=== PATIENT | female | born 1950 | race Caucasian/White ===

== ENCOUNTER 2024-07-25 19:08 | Observation (INO) | payer MEDICARE ==
--- NOTE | 2024-07-25 19:27 | ERPHSYRPT ---
- History of Present Illness Time Seen by Provider: 07/25/24 19:26 Source: patient Physician History: 73-year-old female presents to emergency department via EMS for evaluation of confusion. Patient lives at home with her family patient family reports that patient appeared somewhat confused although patient is ANO x 3 at this time. Patient denies pain. EMS reports that patient had what appeared to be about of orthostatic hypotension when she transition from sit to stand. No syncope. Patient states she feels weak. No nausea no vomiting no diarrhea no rash. Patient is otherwise well. She voices no other complaints or concerns at this time. Portions of this note were created with voice recognition technology. There may be grammatical, spelling, punctuation or sound alike errors Timing/Duration: today Severity: moderate Modifying Factors: Improves With: nothing Associated Symptoms: denies symptoms Allergies/Adverse Reactions: No Known Drug Allergies Allergy (Unverified 07/25/24 23:59) - Review of Systems Constitutional: No Symptoms, No Fever, No Chills Eyes: No Symptoms Ears, Nose, & Throat: No Symptoms Respiratory: No Symptoms, No Cough, No Dyspnea Cardiac: No Symptoms, No Chest Pain, No Edema, No Syncope Abdominal/Gastrointestinal: No Symptoms, No Abdominal Pain, No Nausea, No Vomiting, No Diarrhea Genitourinary Symptoms: No Symptoms, No Dysuria Musculoskeletal: No Symptoms, No Back Pain, No Neck Pain Skin: No Symptoms, No Rash Neurological: No Symptoms, No Dizziness, No Focal Weakness, No Sensory Changes Psychological: No Symptoms Endocrine: No Symptoms Hematologic/Lymphatic: No Symptoms Immunological/Allergic: No Symptoms All Other Systems: Reviewed and Negative - Nursing Vital Signs Nursing Vital Signs: Initial Vital Signs Temperature 98.4 F 07/25/24 19:17 Pulse Rate 56 L 07/25/24 19:17 Respiratory Rate 18 07/25/24 19:17 Blood Pressure 116/60 07/25/24 19:17 O2 Sat by Pulse Oximetry 98 07/25/24 19:17 Pain Scale Pain Intensity 0 - Physical Exam General Appearance: no apparent distress, alert Eye Exam: PERRL/EOMI, eyes nml inspection Ears, Nose, Throat Exam: normal ENT inspection, TMs normal, pharynx normal, moist mucous membranes Neck Exam: normal inspection, non-tender, supple, full range of motion Respiratory Exam: normal breath sounds, lungs clear, airway intact, No respiratory distress Cardiovascular Exam: regular rate/rhythm, normal heart sounds, normal peripheral pulses Gastrointestinal/Abdomen Exam: soft, normal bowel sounds, No tenderness, No mass Back Exam: normal inspection, normal range of motion, No CVA tenderness, No vertebral tenderness Extremity Exam: normal inspection, normal range of motion, pelvis stable Neurologic Exam: alert, oriented x 3, cooperative, normal mood/affect, nml cerebellar function, nml station & gait, sensation nml, No motor deficits Skin Exam: normal color, warm, dry, No rash Lymphatic Exam: No adenopathy SpO2 Interpretation: normal O2 Delivery: Room Air - Course Nursing assessment & vital signs reviewed: Yes - CT Exams Head CT Interpretation: Tele-radiologist Report (Normal CT head) Ordered Tests: Active Orders 24 hr Category Date Time Status Chemical Supervisor STAT Care 07/25/24 21:16 Active EKG-ER Only STAT Care 07/25/24 21:15 Active IV Insertion STAT Care 07/25/24 21:15 Active Pulse Oximetry (ED) STAT Care 07/25/24 21:15 Active CHEST 1 VIEW (PORTABLE) Stat Exams 07/25/24 22:58 Taken CHEST WITH CONTRAST [CT] Stat Exams 07/26/24 00:09 Completed HEAD WITHOUT CONTRAST [CT] Stat Exams 07/25/24 19:11 Taken CBC W DIFF Stat Lab 07/25/24 19:30 Completed CMP Stat Lab 07/25/24 19:30 Completed CULTURE,URINE Stat Lab 07/26/24 00:15 Received D-DIMER QUANTITATIVE Stat Lab 07/25/24 19:30 Completed ETHYL ALCOHOL Stat Lab 07/25/24 19:30 Completed MAG [MAGNESIUM] Stat Lab 07/25/24 19:30 Completed NT PRO BNPII Stat Lab 07/25/24 19:30 Completed TROPONIN Q4H Lab 07/25/24 19:30 Completed TROPONIN Q4H Lab 07/26/24 00:47 Completed TROPONIN Q4H Lab 07/26/24 05:30 Ordered UA W/RFX UR CULTURE Stat Lab 07/26/24 00:15 Completed Respiratory Therapy Assessment DAILY RT 07/26/24 01:37 Active Transfer Order Routine Transfer 07/26/24 Ordered Medication Summary Generic Name Dose Route Start Last Admin Trade Name Freq PRN Reason Stop Dose Admin Sodium Chloride 1,000 mls @ 100 mls/hr 07/25/24 21:15 07/25/24 22:17 Sodium Chloride 0.9% 1000 Ml IV 08/24/24 21:14 100 mls/hr .Q10H DALE Administration Azithromycin 500 mg in 250 mls @ 250 mls/hr 07/26/24 02:13 07/26/24 02:51 Zithromax 500 Mg/ 250 Ml Nacl Premix IV 07/26/24 03:12 250 mls/hr STAT STA 250 mls/hr Administration Discontinued Medications Generic Name Dose Route Start Last Admin Trade Name Basilq PRN Reason Stop Dose Admin Albuterol Sulfate 2.5 mg 07/26/24 01:31 07/26/24 01:32 Albuterol Sulfate 2.5 Mg/3 Ml Neb IH 07/26/24 01:32 2.5 mg STAT ONE Administration Albuterol Sulfate Confirm 07/26/24 01:31 Albuterol Sulfate 2.5 Mg/3 Ml Neb Administered 07/26/24 01:32 Dose 2.5 mg IH .STK-MED ONE Aspirin 324 mg 07/25/24 23:57 07/26/24 01:05 Aspirin 81 Mg Tab.Chew PO 07/25/24 23:58 324 mg STAT ONE Administration Aspirin Confirm 07/26/24 00:56 Aspirin 81 Mg Tab.Chew Administered 07/26/24 00:57 Dose 81 mg .ROUTE .STK-MED ONE Methylprednisolone Sodium 0 mg 07/25/24 22:03 07/25/24 22:19 Succinate 125 mg/ Sterile IV 07/25/24 22:04 125 mg Water 2 ml STAT ONE Administration Famotidine 20 mg 07/25/24 22:03 07/25/24 22:18 Famotidine 20 Mg/1 Vial IV 07/25/24 22:04 20 mg STAT ONE Administration Famotidine Confirm 07/25/24 22:08 Famotidine 20 Mg/1 Vial Administered 07/25/24 22:09 Dose 20 mg IV .STK-MED ONE Ceftriaxone Sodium 1 gm in 100 mls @ 200 mls/hr 07/26/24 02:11 Rocephin 1 Gm / 100 Ml Nacl IV 07/26/24 02:40 STAT ONE Ceftriaxone Sodium 2 gm in 100 mls @ 200 mls/hr 07/26/24 02:13 07/26/24 02:37 Rocephin 2 Gm/100 Ml Nacl IV 07/26/24 02:42 200 mls/hr STAT ONE 200 mls/hr Administration Ceftriaxone Sodium Confirm 07/26/24 02:34 Rocephin 2 Gm/100 Ml Nacl Administered 07/26/24 02:35 Dose 2 gm in 100 mls @ ud IV .STK-MED ONE Ceftriaxone Sodium Confirm 07/26/24 02:36 Rocephin 2 Gm/100 Ml Nacl Administered 07/26/24 02:37 Dose 2 gm in 100 mls @ ud IV .STK-MED ONE Azithromycin Confirm 07/26/24 02:47 Zithromax 500 Mg/ 250 Ml Nacl Premix Administered 07/26/24 02:48 Dose 500 mg in 250 mls @ ud IV .STK-MED ONE Methylprednisolone Sodium Succinate Confirm 07/25/24 22:08 Methylprednis Sod Succ 125 Mg/2 Ml Vial Administered 07/25/24 22:09 Dose 125 mg .ROUTE .STK-MED ONE Sterile Water Confirm 07/25/24 22:08 Water For Injection,Sterile 10 Ml Vial Administered 07/25/24 22:09 Dose 10 ml IJ .STK-MED ONE Lab/Rad Data: Laboratory Result Diagrams 07/25/24 19:30 07/25/24 19:30 Laboratory Results 07/26/24 07/26/24 07/25/24 Range/Units 00:47 00:15 23:58 WBC (3.98-10.04) x10^3/uL RBC (3.93-5.22) x10^6/uL Hgb (11.2-15.7) g/dL Hct (34.1-44.9) % MCV (79.4-94.8) fL MCH (25.6-32.2) pg MCHC (32.2-35.5) g/dL RDW (11.7-14.4) % Plt Count (182-369) x10^3/uL MPV (9.4-12.3) fL Gran % (34.0-71.1) % Immature Gran % (Auto) (0.001-0.429) % Nucleat RBC Rel Count (0.00-0.2) % Eos # (Auto) (0.04-0.36) x10^3/uL Immature Gran # (Auto) (0.001-0.031) x10^3u/L Absolute Lymphs (auto) (1.18-3.74) x10^3/uL Absolute Monos (auto) (0.24-0.86) x10^3/uL Absolute Nucleated RBC (0.00-0.012) x10^3u/L Lymphocytes % (19.3-51.7) % Monocytes % (4.7-12.5) % Eosinophils % (0.7-5.8) % Basophils % (0.1-1.2) % Absolute Granulocytes (1.56-6.13) x10^3/uL Basophils # (0.01-0.08) x10^3/uL D-Dimer (0.0-0.50) mg/L Sodium (135-145) mmol/L Potassium (3.5-5.1) mmol/L Chloride (98-107) mmol/L Carbon Dioxide (22-30) mmol/L Anion Gap (5-15) MEQ/L BUN (7-17) mg/dL Creatinine (0.52-1.04) mg/dL Estimated GFR ML/MIN Glucose (74-106) mg/dL Calcium (8.4-10.2) mg/dL Magnesium (1.6-2.3) mg/dL Total Bilirubin (0.2-1.3) mg/dL AST (14-36) U/L ALT (0-35) U/L Alkaline Phosphatase (38-126) U/L Ammonia (9-30) umol/L Troponin I < 0.012 (0.000-0.033) ng/mL NT-Pro-B Natriuret Pep (<300) pg/mL Serum Total Protein (6.3-8.2) g/dL Albumin (3.5-5.0) g/dL Urine Color Yellow (Yellow) Urine Appearance Clear (Clear) Urine pH 6.5 (4.6-8.0) Ur Specific [place] 1.015 (1.005-1.030) Urine Protein Negative (Negative) Urine Glucose (UA) Negative (Negative) mg/dL Urine Ketones Negative (Negative) Urine Blood Negative (Negative) Urine Nitrite Negative (Negative) Urine Bilirubin Negative (Negative) Urine Urobilinogen 0.2 (0.2) mg/dL Ur Leukocyte Esterase Small A (Negative) U Hyaline Cast (Auto) NONE SEEN (0-2) /LPF Urine Microscopic RBC 0-2 (0-5) /HPF Urine Microscopic WBC 11-20 A (0-5) /HPF Ur Epithelial Cells None Seen (None Seen) /HPF Urine Bacteria None Seen (None Seen) /HPF Urine Culture Reflexed YES (NO) Ethyl Alcohol (0-10) mg/dL Influenza Type A Ag NEGATIVE (NEGATIVE) Influenza Type B Ag NEGATIVE (NEGATIVE) RSV (PCR) NEGATIVE (NEGATIVE) SARS-CoV-2 (PCR) NEGATIVE (NEGATIVE) 07/25/24 07/25/24 07/25/24 Range/Units 19:30 19:30 19:30 WBC (3.98-10.04) x10^3/uL RBC (3.93-5.22) x10^6/uL Hgb (11.2-15.7) g/dL Hct (34.1-44.9) % MCV (79.4-94.8) fL MCH (25.6-32.2) pg MCHC (32.2-35.5) g/dL RDW (11.7-14.4) % Plt Count (182-369) x10^3/uL MPV (9.4-12.3) fL Gran % (34.0-71.1) % Immature Gran % (Auto) (0.001-0.429) % Nucleat RBC Rel Count (0.00-0.2) % Eos # (Auto) (0.04-0.36) x10^3/uL Immature Gran # (Auto) (0.001-0.031) x10^3u/L Absolute Lymphs (auto) (1.18-3.74) x10^3/uL Absolute Monos (auto) (0.24-0.86) x10^3/uL Absolute Nucleated RBC (0.00-0.012) x10^3u/L Lymphocytes % (19.3-51.7) % Monocytes % (4.7-12.5) % Eosinophils % (0.7-5.8) % Basophils % (0.1-1.2) % Absolute Granulocytes (1.56-6.13) x10^3/uL Basophils # (0.01-0.08) x10^3/uL D-Dimer 1.16 H* (0.0-0.50) mg/L Sodium (135-145) mmol/L Potassium (3.5-5.1) mmol/L Chloride (98-107) mmol/L Carbon Dioxide (22-30) mmol/L Anion Gap (5-15) MEQ/L BUN (7-17) mg/dL Creatinine (0.52-1.04) mg/dL Estimated GFR ML/MIN Glucose (74-106) mg/dL Calcium (8.4-10.2) mg/dL Magnesium (1.6-2.3) mg/dL Total Bilirubin (0.2-1.3) mg/dL AST (14-36) U/L ALT (0-35) U/L Alkaline Phosphatase (38-126) U/L Ammonia (9-30) umol/L Troponin I < 0.012 (0.000-0.033) ng/mL NT-Pro-B Natriuret Pep 723 (<300) pg/mL Serum Total Protein (6.3-8.2) g/dL Albumin (3.5-5.0) g/dL Urine Color (Yellow) Urine Appearance (Clear) Urine pH (4.6-8.0) Ur Specific [place] (1.005-1.030) Urine Protein (Negative) Urine Glucose (UA) (Negative) mg/dL Urine Ketones (Negative) Urine Blood (Negative) Urine Nitrite (Negative) Urine Bilirubin (Negative) Urine Urobilinogen (0.2) mg/dL Ur Leukocyte Esterase (Negative) U Hyaline Cast (Auto) (0-2) /LPF Urine Microscopic RBC (0-5) /HPF Urine Microscopic WBC (0-5) /HPF Ur Epithelial Cells (None Seen) /HPF Urine Bacteria (None Seen) /HPF Urine Culture Reflexed (NO) Ethyl Alcohol (0-10) mg/dL Influenza Type A Ag (NEGATIVE) Influenza Type B Ag (NEGATIVE) RSV (PCR) (NEGATIVE) SARS-CoV-2 (PCR) (NEGATIVE) 07/25/24 07/25/24 07/25/24 Range/Units 19:30 19:30 19:30 WBC 6.9 (3.98-10.04) x10^3/uL RBC 3.93 (3.93-5.22) x10^6/uL Hgb 12.5 (11.2-15.7) g/dL Hct 38.6 (34.1-44.9) % MCV 98.2 H (79.4-94.8) fL MCH 31.8 (25.6-32.2) pg MCHC 32.4 (32.2-35.5) g/dL RDW 13.2 (11.7-14.4) % Plt Count 206 (182-369) x10^3/uL MPV 11.9 (9.4-12.3) fL Gran % 56.1 (34.0-71.1) % Immature Gran % (Auto) 0.3 (0.001-0.429) % Nucleat RBC Rel Count 0.0 (0.00-0.2) % Eos # (Auto) 0.21 (0.04-0.36) x10^3/uL Immature Gran # (Auto) 0.02 (0.001-0.031) x10^3u/L Absolute Lymphs (auto) 2.05 (1.18-3.74) x10^3/uL Absolute Monos (auto) 0.66 (0.24-0.86) x10^3/uL Absolute Nucleated RBC 0.00 (0.00-0.012) x10^3u/L Lymphocytes % 29.9 (19.3-51.7) % Monocytes % 9.6 (4.7-12.5) % Eosinophils % 3.1 (0.7-5.8) % Basophils % 1.0 (0.1-1.2) % Absolute Granulocytes 3.85 (1.56-6.13) x10^3/uL Basophils # 0.07 (0.01-0.08) x10^3/uL D-Dimer (0.0-0.50) mg/L Sodium 143 (135-145) mmol/L Potassium 3.9 (3.5-5.1) mmol/L Chloride 105 (98-107) mmol/L Carbon Dioxide 31 H (22-30) mmol/L Anion Gap 11.2 (5-15) MEQ/L BUN 12 (7-17) mg/dL Creatinine 0.76 (0.52-1.04) mg/dL Estimated GFR 82.7 ML/MIN Glucose 79 (74-106) mg/dL Calcium 9.3 (8.4-10.2) mg/dL Magnesium 1.8 (1.6-2.3) mg/dL Total Bilirubin 0.60 (0.2-1.3) mg/dL AST 25 (14-36) U/L ALT 18 (0-35) U/L Alkaline Phosphatase 83 (38-126) U/L Ammonia (9-30) umol/L Troponin I (0.000-0.033) ng/mL NT-Pro-B Natriuret Pep (<300) pg/mL Serum Total Protein 7.0 (6.3-8.2) g/dL Albumin 3.9 (3.5-5.0) g/dL Urine Color (Yellow) Urine Appearance (Clear) Urine pH (4.6-8.0) Ur Specific [place] (1.005-1.030) Urine Protein (Negative) Urine Glucose (UA) (Negative) mg/dL Urine Ketones (Negative) Urine Blood (Negative) Urine Nitrite (Negative) Urine Bilirubin (Negative) Urine Urobilinogen (0.2) mg/dL Ur Leukocyte Esterase (Negative) U Hyaline Cast (Auto) (0-2) /LPF Urine Microscopic RBC (0-5) /HPF Urine Microscopic WBC (0-5) /HPF Ur Epithelial Cells (None Seen) /HPF Urine Bacteria (None Seen) /HPF Urine Culture Reflexed (NO) Ethyl Alcohol < 10 (0-10) mg/dL Influenza Type A Ag (NEGATIVE) Influenza Type B Ag (NEGATIVE) RSV (PCR) (NEGATIVE) SARS-CoV-2 (PCR) (NEGATIVE) 07/25/24 Range/Units 19:30 WBC (3.98-10.04) x10^3/uL RBC (3.93-5.22) x10^6/uL Hgb (11.2-15.7) g/dL Hct (34.1-44.9) % MCV (79.4-94.8) fL MCH (25.6-32.2) pg MCHC (32.2-35.5) g/dL RDW (11.7-14.4) % Plt Count (182-369) x10^3/uL MPV (9.4-12.3) fL Gran % (34.0-71.1) % Immature Gran % (Auto) (0.001-0.429) % Nucleat RBC Rel Count (0.00-0.2) % Eos # (Auto) (0.04-0.36) x10^3/uL Immature Gran # (Auto) (0.001-0.031) x10^3u/L Absolute Lymphs (auto) (1.18-3.74) x10^3/uL Absolute Monos (auto) (0.24-0.86) x10^3/uL Absolute Nucleated RBC (0.00-0.012) x10^3u/L Lymphocytes % (19.3-51.7) % Monocytes % (4.7-12.5) % Eosinophils % (0.7-5.8) % Basophils % (0.1-1.2) % Absolute Granulocytes (1.56-6.13) x10^3/uL Basophils # (0.01-0.08) x10^3/uL D-Dimer (0.0-0.50) mg/L Sodium (135-145) mmol/L Potassium (3.5-5.1) mmol/L Chloride (98-107) mmol/L Carbon Dioxide (22-30) mmol/L Anion Gap (5-15) MEQ/L BUN (7-17) mg/dL Creatinine (0.52-1.04) mg/dL Estimated GFR ML/MIN Glucose (74-106) mg/dL Calcium (8.4-10.2) mg/dL Magnesium (1.6-2.3) mg/dL Total Bilirubin (0.2-1.3) mg/dL AST (14-36) U/L ALT (0-35) U/L Alkaline Phosphatase (38-126) U/L Ammonia < 9 L (9-30) umol/L Troponin I (0.000-0.033) ng/mL NT-Pro-B Natriuret Pep (<300) pg/mL Serum Total Protein (6.3-8.2) g/dL Albumin (3.5-5.0) g/dL Urine Color (Yellow) Urine Appearance (Clear) Urine pH (4.6-8.0) Ur Specific [place] (1.005-1.030) Urine Protein (Negative) Urine Glucose (UA) (Negative) mg/dL Urine Ketones (Negative) Urine Blood (Negative) Urine Nitrite (Negative) Urine Bilirubin (Negative) Urine Urobilinogen (0.2) mg/dL Ur Leukocyte Esterase (Negative) U Hyaline Cast (Auto) (0-2) /LPF Urine Microscopic RBC (0-5) /HPF Urine Microscopic WBC (0-5) /HPF Ur Epithelial Cells (None Seen) /HPF Urine Bacteria (None Seen) /HPF Urine Culture Reflexed (NO) Ethyl Alcohol (0-10) mg/dL Influenza Type A Ag (NEGATIVE) Influenza Type B Ag (NEGATIVE) RSV (PCR) (NEGATIVE) SARS-CoV-2 (PCR) (NEGATIVE) - Progress Progress: improved Progress Note: We stand patient up to the edge of the bed. Patient's O2 sat dropped to 90%. Patient became short of breath. We had to expand our workup at this point to include hypoxia and shortness of breath in addition to the initial presenting complaint of altered mental status. At rest in the supine position patient's O2 sat was normal. Lungs were clear 07/26/24 00:18 73-year-old female presents to our ED for evaluation of transient altered mental status. Family observed patient to be confused. However upon arrival to our ED patient was appropriate. CT head negative for acute intracranial pathology. Later in the course of patient's ED visit patient was observed to be hypoxic. Workup showed a positive D-dimer. CTA chest negative however COPD observed. Patient treated for COPD exacerbation including Solu-Medrol, breathing treatment, antibiotics blood cultures. While in our ED patient advised that she had been experiencing some itching to both arms for the past several days. Patient received a dose of Pepcid in our ED. laboratory workup essentially nonremarkable otherwise. UA significant for urinary tract infection. Patient reassessed. Patient resting comfortably. No indication for further workup via our ED. Patient will be admitted for further workup of her transient confusion which may be secondary to TIA. Patient will also need workup to treat hypoxia. Plan of care discussed with patient. She agrees to admission at [facility] for further evaluation and treatment. Portions of this note were created with voice recognition technology. There may be grammatical, spelling, punctuation or sound alike errors Complexity of problem addressed is moderate acute complicated. No critical care time. Complex of data reviewed and analyzed is extensive. Test ordered test reviewed results analyzed and correlated clinically with history and physical exam. Management discussed with hospitalist who accepts admission to observation at 2:34 AM. Risk of complication and or risk of morbidity/mortality of patient management is high. Patient requires hospitalization for further evaluation and treatment. Vital stable. Time spent to admit patient approximately 20 minutes. Plan of care established for shared decision making. No social determinants of health present to impede follow-up. Portions of this note were created with voice recognition technology. There may be grammatical, spelling, punctuation or sound alike errors 07/26/24 02:56 Counseled pt/family regarding: lab results, diagnosis, need for follow-up, rad results - Departure Departure Disposition: Observation Clinical Impression: Confusion, Pruritus, Hypoxia, SOB (shortness of breath), UTI (urinary tract infection), COPD exacerbation Condition: Stable Critical Care Time: No Referrals: DOCTOR,NO FAMILY [Primary Care Provider] - Follow up/PCP as directed Instructions: Chronic Obstructive Pulmonary Disease
[2024-07-25 21:19] LABS: Absolute Neutrophil Ct (ANC) 3.85 x10^3/uL (1.56-6.13); Basophil (Absolute #) 0.07 x10^3/uL (0.01-0.08); Eosinophil % 3.1 % (0.7-5.8); Eosinophil (Absolute #) 0.21 x10^3/uL (0.04-0.36); Hematocrit 38.6 % (34.1-44.9); Hemoglobin 12.5 g/dL (11.2-15.7); IMMATURE GRAN # 0.02 x10^3u/L (0.001-0.031); IMMATURE GRAN % 0.3 % (0.001-0.429); Lymphocyte (Absolute #) 2.05 x10^3/uL (1.18-3.74); Lymphocytes % 29.9 % (19.3-51.7); Mean Cell Volume 98.2 fL (79.4-94.8); Mean Corpuscular Hemoglobin 31.8 pg (25.6-32.2); Mean Corpuscular Hgb Concent. 32.4 g/dL (32.2-35.5); Mean Platelet Volume 11.9 fL (9.4-12.3); Monocyte (Absolute #) 0.66 x10^3/uL (0.24-0.86); Monocytes % 9.6 % (4.7-12.5); Neutrophil % 56.1 % (34.0-71.1); Platelet Count 206 x10^3/uL (182-369); Red Blood Count 3.93 x10^6/uL (3.93-5.22); Red Cell Distribution Width 13.2 % (11.7-14.4); White Blood Count 6.9 x10^3/uL (3.98-10.04)
[2024-07-25 21:33] LABS: ALBUMIN 3.9 g/dL (3.5-5.0); ALKALINE PHOSPHATASE 83 U/L (38-126); ANION GAP 11.2 MEQ/L (5-15); BLOOD UREA NITROGEN 12 mg/dL (7-17); CHLORIDE 105 mmol/L (98-107); Calcium 9.3 mg/dL (8.4-10.2); Carbon Dioxide 31 mmol/L (22-30); Creatinine 1 0.76 mg/dL (0.52-1.04); EST GLOMERULAR FILTRATION RATE 82.7 ML/MIN; ETHYL ALCOHOL < 10 mg/dL (0-10); Glucose 79 mg/dL (74-106); Potassium 3.9 mmol/L (3.5-5.1); SGOT/AST 25 U/L (14-36); SGPT/ALT 18 U/L (0-35); SODIUM 143 mmol/L (135-145)
[2024-07-25] MEDS ORDERED: Pepcid 20 MG VIAL IV ONE (22:08)
[2024-07-25] MEDS ORDERED: solu-MEDROL ONE (22:08)
[2024-07-25] MEDS ORDERED: Sterile H2O 10 ml IJ ONE (22:08)
[2024-07-25] MEDS: Sodium Chloride 0.9% 1000 ML 1,000 ML IV SCH (22:17)
[2024-07-25] MEDS: Pepcid 20 MG VIAL IV ONE (22:18)
[2024-07-25] MEDS: solu-MEDROL 125 MG, Sterile H2O 10 ml 2 ML IV ONE (22:19)
[2024-07-26 00:36] LABS: INFLUENZA A NEGATIVE (NEGATIVE); INFLUENZA B NEGATIVE (NEGATIVE); RESPIRATORY SYNCTIAL VIRUS NEGATIVE (NEGATIVE); SARS-CoV-2 Xpert Express NEGATIVE (NEGATIVE)
[2024-07-26 00:43] LABS: Appearance Clear (Clear); Bacteria None Seen /HPF (None Seen); Bilirubin Negative (Negative); Blood Negative (Negative); Epithelial Cells None Seen /HPF (None Seen); Glucose, Urine Negative (Negative); Hyaline Casts NONE SEEN /LPF (0-2); Ketones Negative (Negative); Leukocyte Esterase Small (Negative); Nitrite Negative (Negative); Ph 6.5 (4.6-8.0); Protein,Urine Dip Negative (Negative); RBC 0-2 /HPF (0-5); Specific Gravity 1.015 (1.005-1.030); Urobilinogen 0.2 mg/dL (0.2)
[2024-07-26] MEDS ORDERED: BABY ASPIRIN 81 MG CHEW ONE (00:56)
[2024-07-26] MEDS: BABY ASPIRIN 81 MG CHEW PO ONE (01:05)
[2024-07-26] MEDS ORDERED: PROVENTIL 2.5 MG/3 ML NEB IH ONE (01:31)
[2024-07-26] MEDS: PROVENTIL 2.5 MG/3 ML NEB IH ONE (01:32)
--- NOTE | 2024-07-26 02:01 | XRAY ---
CLINICAL HISTORY: sob, + dimer COMPARISON: None. TECHNIQUE: Contiguous axial images were obtained from the neck base through the upper abdomen following intravenous administration of contrast material. If IV contrast material had not been administered, the likelihood of detecting abnormalities relevant to the patient's condition would have been substantially decreased. In addition, sagittal and coronal reconstructions were performed. CT scan was performed according to ALARA (as low as reasonable achievable). FINDINGS: Diffuse centrilobular emphysema is noted involving bilateral lungs. Focal fibrotic thickening are noted involving posterior segment of right upper lobe. Focal calcification is noted adjacent to the course of segmental branches of right upper lobe. The lungs are clear, with no focal areas of consolidation. No pulmonary nodules are seen. The central airways are patent. There are no pleural effusions. No pneumothorax is seen. No axillary, hilar, or mediastinal adenopathy is identified. The visualized thyroid is unremarkable. The heart, aorta, and pulmonary arteries are of normal size and configuration. No pericardial effusion is identified. Imaged portions of the upper abdomen are unremarkable. No aggressive appearing osseous lesions are identified. IMPRESSION: 1. Diffuse centrilobular emphysema is noted involving bilateral lungs.- possibility of COPD changes. 2. Focal fibrotic thickening are noted involving posterior segment of right upper lobe. 3. Focal calcification is noted adjacent to the course of segmental branches of right upper lobe. 4. No obvious evidence of pulmonary thromboembolism. Electronically Signed by: Yovanny Gilbert MD. (07/26/2024 01:57:01 EST)
[2024-07-26] MEDS ORDERED: ROCEPHIN 2 GM/100 ML NACL 0 GM/0 ML IVPB IV ONE (02:34)
[2024-07-26] MEDS ORDERED: ROCEPHIN 2 GM/100 ML NACL 2 GM/100 ML IVPB IV ONE (02:36)
[2024-07-26] MEDS: ROCEPHIN 2 GM/100 ML NACL 2 GM/100 ML IVPB IV ONE (02:37)
[2024-07-26] MEDS ORDERED: Zithromax 500 MG/ 250 ML NaCl Premix 500 MG/250 ML IVPB IV ONE (02:47)
[2024-07-26] MEDS: Zithromax 500 MG/ 250 ML NaCl Premix 500 MG/250 ML IVPB IV STA (02:51)
[2024-07-26] MEDS: NICODERM CQ 14 MG TOP SCH (05:43)
[2024-07-26 05:46] LABS: Hematocrit 36.9 % (34.1-44.9); Mean Cell Volume 96.3 fL (79.4-94.8); Mean Corpuscular Hemoglobin 31.3 pg (25.6-32.2); Mean Corpuscular Hgb Concent. 32.5 g/dL (32.2-35.5); Mean Platelet Volume 11.4 fL (9.4-12.3); Platelet Count 204 x10^3/uL (182-369); Red Blood Count 3.83 x10^6/uL (3.93-5.22); Red Cell Distribution Width 13.4 % (11.7-14.4); White Blood Count 7.2 x10^3/uL (3.98-10.04)
[2024-07-26 05:59] LABS: Creatinine 1 0.64 mg/dL (0.52-1.04); EST GLOMERULAR FILTRATION RATE 93.3 ML/MIN; Potassium 3.9 mmol/L (3.5-5.1)
--- NOTE | 2024-07-26 06:02 | PCM.HP ---
History of Present Illness - Chief Complaint Chief Complaint: confusion, hypoxia Date: 07/26/24 History of Present Illness: 73-year-old woman with history of COPD and hypothyroidism, who presents from home with confusion. Of note, history is somewhat limited, as patient does not know why she was brought to the hospital. By the time she arrived to the ED, she was at her baseline mentation, and patient is like she is doing well overall. On arrival, she was doing well, but eventually developed mild hypoxia with an SpO2 of 91% on room air, and at that time was complaining of some dyspnea, and was placed on 2 L oxygen. She is currently 96% on 2 L. She says that she has been having some intermittent dyspnea chronically but not having any currently. Denies any cough, fever, congestion, or sore throat. She denies chest pain, abdominal pain, nausea, dysuria, although noted to be having some intermittent diarrhea. She notes that she is on an inhaler at home, but she does not know what it is that she takes. In the ED, patient was given Rocephin, azithromycin, methylprednisolone, albuterol, aspirin, famotidine, inserted on normal saline at 100 mL/h. - Review of Systems All Other Systems: Reviewed and Negative Medications & Allergies Allergies/Adverse Reactions: Allergies Allergy/AdvReac Type Severity Reaction Status Date / Time No Known Drug Allergies Allergy Unverified 07/25/24 23:59 - Past Medical History Past Medical History: Yes Neurological History: No Pertinent History ENT History: No Pertinent History Cardiac History: Coronary Artery Disease Respiratory History: No Pertinent History Endocrine Medical History: Hypothyroidism Musculoskelatal History: No Pertinent History GI Medical History: No Pertinent History History: No Pertinent History Pyscho-Social History: No Pertinent History Reproductive Disorders: No Pertinent History - Past Surgical History Past Surgical History: Yes Neuro Surgical History: No Pertinent History Cardiac History: CABG Respiratory Surgery: No Pertinent History GI Surgical History: No Pertinent History Genitourinary Surgical Hx: No Pertinent History Musculskeletal Surgical Hx: No Pertinent History Female Surgical History: No Pertinent History Other Surgical History: thyroid removed in the 80's, does not remember exact year Significant Family History: no pertinent family hx, other (both parents with cancer; son with epilepsy) - Social History Smoking Status: Current every day smoker (former heavy smoker, now 2-3 cigarettes per day) How long have you smoked: 47 years Exposure to second hand smoke: No Alcohol: None Drug Use: none - Social Determinants of Health Will the patient participate in the screening: Declined to provide - Physical Exam Vital Signs: Vital Signs - 24 hr Temp Pulse Resp BP BP Pulse Ox 07/26/24 04:48 57 L 20 95 07/26/24 03:45 96 07/26/24 03:37 97.4 F 65 18 126/66 94 L 07/26/24 02:30 77 23 103/56 96 07/26/24 02:00 69 23 96/57 96 07/26/24 01:59 69 28 H 96 07/26/24 01:50 63 32 H 95 07/26/24 01:40 57 L 27 H 99 07/26/24 01:37 58 L 22 99 07/26/24 01:30 59 L 29 H 99 07/26/24 01:24 99 07/26/24 01:01 54 L 24 99 07/26/24 00:30 60 26 H 116/63 100 07/26/24 00:12 60 24 147/74 99 07/25/24 23:30 62 20 152/78 98 07/25/24 23:00 60 31 H 155/77 94 L 07/25/24 22:59 69 19 95 07/25/24 22:50 58 L 34 H 94 L 07/25/24 22:49 61 30 H 95 07/25/24 22:40 61 21 95 07/25/24 22:32 62 27 H 94 L 07/25/24 22:01 58 L 27 H 96/50 94 L 07/25/24 21:34 58 L 32 H 112/63 95 07/25/24 21:30 54 L 30 H 86/63 95 07/25/24 21:15 98 07/25/24 21:11 56 L 24 120/66 94 L 07/25/24 21:01 53 L 21 78/50 98 07/25/24 20:30 55 L 30 H 117/59 96 07/25/24 20:00 51 L 21 107/56 96 07/25/24 19:30 50 L 24 117/63 95 07/25/24 19:23 59 L 29 H 116/60 07/25/24 19:17 98.4 F 56 L 18 116/60 98 Physical Exam GEN: Somewhat frail woman, sitting up in bed in no acute distress. HENT: Normocephalic, atraumatic. Moist mucous membranes. EYES: Normal inspection, anicteric sclera, extraocular movements intact. NECK: Supple, full range of motion CV: Regular rate and rhythm, no murmurs, no gallops. No JVD or edema. PULM: Clear to auscultation bilaterally, no work of breathing, speaking in full sentences. On 2 L oxygen by nasal cannula. ABD: Nondistended, nontender. MSK: No joint effusions, full range of motion SKIN: No rashes, normal color. NEURO: Face symmetric, no focal motor or sensory deficits. PSYCH: Alert, oriented x 3, able to answer all questions Results - Labs Lab/Micro Results: Lab Results-Last 24 Hours 07/25/24 07/25/24 07/25/24 Range/Units 19:30 19:30 19:30 WBC 6.9 (3.98-10.04) x10^3/uL RBC 3.93 (3.93-5.22) x10^6/uL Hgb 12.5 (11.2-15.7) g/dL Hct 38.6 (34.1-44.9) % MCV 98.2 H (79.4-94.8) fL MCH 31.8 (25.6-32.2) pg MCHC 32.4 (32.2-35.5) g/dL RDW 13.2 (11.7-14.4) % Plt Count 206 (182-369) x10^3/uL MPV 11.9 (9.4-12.3) fL Gran % 56.1 (34.0-71.1) % Immature Gran % (Auto) 0.3 (0.001-0.429) % Nucleat RBC Rel Count 0.0 (0.00-0.2) % Eos # (Auto) 0.21 (0.04-0.36) x10^3/uL Immature Gran # (Auto) 0.02 (0.001-0.031) x10^3u/L Absolute Lymphs (auto) 2.05 (1.18-3.74) x10^3/uL Absolute Monos (auto) 0.66 (0.24-0.86) x10^3/uL Absolute Nucleated RBC 0.00 (0.00-0.012) x10^3u/L Lymphocytes % 29.9 (19.3-51.7) % Monocytes % 9.6 (4.7-12.5) % Eosinophils % 3.1 (0.7-5.8) % Basophils % 1.0 (0.1-1.2) % Absolute Granulocytes 3.85 (1.56-6.13) x10^3/uL Basophils # 0.07 (0.01-0.08) x10^3/uL D-Dimer (0.0-0.50) mg/L Sodium (135-145) mmol/L Potassium (3.5-5.1) mmol/L Chloride (98-107) mmol/L Carbon Dioxide (22-30) mmol/L Anion Gap (5-15) MEQ/L BUN (7-17) mg/dL Creatinine (0.52-1.04) mg/dL Estimated GFR ML/MIN Glucose (74-106) mg/dL Calcium (8.4-10.2) mg/dL Magnesium 1.8 (1.6-2.3) mg/dL Total Bilirubin (0.2-1.3) mg/dL AST (14-36) U/L ALT (0-35) U/L Alkaline Phosphatase (38-126) U/L Ammonia < 9 L (9-30) umol/L Troponin I (0.000-0.033) ng/mL NT-Pro-B Natriuret Pep (<300) pg/mL Serum Total Protein (6.3-8.2) g/dL Albumin (3.5-5.0) g/dL Urine Color (Yellow) Urine Appearance (Clear) Urine pH (4.6-8.0) Ur Specific [place] (1.005-1.030) Urine Protein (Negative) Urine Glucose (UA) (Negative) mg/dL Urine Ketones (Negative) Urine Blood (Negative) Urine Nitrite (Negative) Urine Bilirubin (Negative) Urine Urobilinogen (0.2) mg/dL Ur Leukocyte Esterase (Negative) U Hyaline Cast (Auto) (0-2) /LPF Urine Microscopic RBC (0-5) /HPF Urine Microscopic WBC (0-5) /HPF Ur Epithelial Cells (None Seen) /HPF Urine Bacteria (None Seen) /HPF Urine Culture Reflexed (NO) Ethyl Alcohol (0-10) mg/dL Influenza Type A Ag (NEGATIVE) Influenza Type B Ag (NEGATIVE) RSV (PCR) (NEGATIVE) SARS-CoV-2 (PCR) (NEGATIVE) 07/25/24 07/25/24 07/25/24 Range/Units 19:30 19:30 19:30 WBC (3.98-10.04) x10^3/uL RBC (3.93-5.22) x10^6/uL Hgb (11.2-15.7) g/dL Hct (34.1-44.9) % MCV (79.4-94.8) fL MCH (25.6-32.2) pg MCHC (32.2-35.5) g/dL RDW (11.7-14.4) % Plt Count (182-369) x10^3/uL MPV (9.4-12.3) fL Gran % (34.0-71.1) % Immature Gran % (Auto) (0.001-0.429) % Nucleat RBC Rel Count (0.00-0.2) % Eos # (Auto) (0.04-0.36) x10^3/uL Immature Gran # (Auto) (0.001-0.031) x10^3u/L Absolute Lymphs (auto) (1.18-3.74) x10^3/uL Absolute Monos (auto) (0.24-0.86) x10^3/uL Absolute Nucleated RBC (0.00-0.012) x10^3u/L Lymphocytes % (19.3-51.7) % Monocytes % (4.7-12.5) % Eosinophils % (0.7-5.8) % Basophils % (0.1-1.2) % Absolute Granulocytes (1.56-6.13) x10^3/uL Basophils # (0.01-0.08) x10^3/uL D-Dimer 1.16 H* (0.0-0.50) mg/L Sodium 143 (135-145) mmol/L Potassium 3.9 (3.5-5.1) mmol/L Chloride 105 (98-107) mmol/L Carbon Dioxide 31 H (22-30) mmol/L Anion Gap 11.2 (5-15) MEQ/L BUN 12 (7-17) mg/dL Creatinine 0.76 (0.52-1.04) mg/dL Estimated GFR 82.7 ML/MIN Glucose 79 (74-106) mg/dL Calcium 9.3 (8.4-10.2) mg/dL Magnesium (1.6-2.3) mg/dL Total Bilirubin 0.60 (0.2-1.3) mg/dL AST 25 (14-36) U/L ALT 18 (0-35) U/L Alkaline Phosphatase 83 (38-126) U/L Ammonia (9-30) umol/L Troponin I < 0.012 (0.000-0.033) ng/mL NT-Pro-B Natriuret Pep (<300) pg/mL Serum Total Protein 7.0 (6.3-8.2) g/dL Albumin 3.9 (3.5-5.0) g/dL Urine Color (Yellow) Urine Appearance (Clear) Urine pH (4.6-8.0) Ur Specific [place] (1.005-1.030) Urine Protein (Negative) Urine Glucose (UA) (Negative) mg/dL Urine Ketones (Negative) Urine Blood (Negative) Urine Nitrite (Negative) Urine Bilirubin (Negative) Urine Urobilinogen (0.2) mg/dL Ur Leukocyte Esterase (Negative) U Hyaline Cast (Auto) (0-2) /LPF Urine Microscopic RBC (0-5) /HPF Urine Microscopic WBC (0-5) /HPF Ur Epithelial Cells (None Seen) /HPF Urine Bacteria (None Seen) /HPF Urine Culture Reflexed (NO) Ethyl Alcohol < 10 (0-10) mg/dL Influenza Type A Ag (NEGATIVE) Influenza Type B Ag (NEGATIVE) RSV (PCR) (NEGATIVE) SARS-CoV-2 (PCR) (NEGATIVE) 07/25/24 07/25/24 07/26/24 Range/Units 19:30 23:58 00:15 WBC (3.98-10.04) x10^3/uL RBC (3.93-5.22) x10^6/uL Hgb (11.2-15.7) g/dL Hct (34.1-44.9) % MCV (79.4-94.8) fL MCH (25.6-32.2) pg MCHC (32.2-35.5) g/dL RDW (11.7-14.4) % Plt Count (182-369) x10^3/uL MPV (9.4-12.3) fL Gran % (34.0-71.1) % Immature Gran % (Auto) (0.001-0.429) % Nucleat RBC Rel Count (0.00-0.2) % Eos # (Auto) (0.04-0.36) x10^3/uL Immature Gran # (Auto) (0.001-0.031) x10^3u/L Absolute Lymphs (auto) (1.18-3.74) x10^3/uL Absolute Monos (auto) (0.24-0.86) x10^3/uL Absolute Nucleated RBC (0.00-0.012) x10^3u/L Lymphocytes % (19.3-51.7) % Monocytes % (4.7-12.5) % Eosinophils % (0.7-5.8) % Basophils % (0.1-1.2) % Absolute Granulocytes (1.56-6.13) x10^3/uL Basophils # (0.01-0.08) x10^3/uL D-Dimer (0.0-0.50) mg/L Sodium (135-145) mmol/L Potassium (3.5-5.1) mmol/L Chloride (98-107) mmol/L Carbon Dioxide (22-30) mmol/L Anion Gap (5-15) MEQ/L BUN (7-17) mg/dL Creatinine (0.52-1.04) mg/dL Estimated GFR ML/MIN Glucose (74-106) mg/dL Calcium (8.4-10.2) mg/dL Magnesium (1.6-2.3) mg/dL Total Bilirubin (0.2-1.3) mg/dL AST (14-36) U/L ALT (0-35) U/L Alkaline Phosphatase (38-126) U/L Ammonia (9-30) umol/L Troponin I (0.000-0.033) ng/mL NT-Pro-B Natriuret Pep 723 (<300) pg/mL Serum Total Protein (6.3-8.2) g/dL Albumin (3.5-5.0) g/dL Urine Color Yellow (Yellow) Urine Appearance Clear (Clear) Urine pH 6.5 (4.6-8.0) Ur Specific [place] 1.015 (1.005-1.030) Urine Protein Negative (Negative) Urine Glucose (UA) Negative (Negative) mg/dL Urine Ketones Negative (Negative) Urine Blood Negative (Negative) Urine Nitrite Negative (Negative) Urine Bilirubin Negative (Negative) Urine Urobilinogen 0.2 (0.2) mg/dL Ur Leukocyte Esterase Small A (Negative) U Hyaline Cast (Auto) NONE SEEN (0-2) /LPF Urine Microscopic RBC 0-2 (0-5) /HPF Urine Microscopic WBC 11-20 A (0-5) /HPF Ur Epithelial Cells None Seen (None Seen) /HPF Urine Bacteria None Seen (None Seen) /HPF Urine Culture Reflexed YES (NO) Ethyl Alcohol (0-10) mg/dL Influenza Type A Ag NEGATIVE (NEGATIVE) Influenza Type B Ag NEGATIVE (NEGATIVE) RSV (PCR) NEGATIVE (NEGATIVE) SARS-CoV-2 (PCR) NEGATIVE (NEGATIVE) 07/26/24 07/26/24 Range/Units 00:47 05:30 WBC 7.2 (3.98-10.04) x10^3/uL RBC 3.83 L (3.93-5.22) x10^6/uL Hgb 12.0 (11.2-15.7) g/dL Hct 36.9 (34.1-44.9) % MCV 96.3 H (79.4-94.8) fL MCH 31.3 (25.6-32.2) pg MCHC 32.5 (32.2-35.5) g/dL RDW 13.4 (11.7-14.4) % Plt Count 204 (182-369) x10^3/uL MPV 11.4 (9.4-12.3) fL Gran % (34.0-71.1) % Immature Gran % (Auto) (0.001-0.429) % Nucleat RBC Rel Count (0.00-0.2) % Eos # (Auto) (0.04-0.36) x10^3/uL Immature Gran # (Auto) (0.001-0.031) x10^3u/L Absolute Lymphs (auto) (1.18-3.74) x10^3/uL Absolute Monos (auto) (0.24-0.86) x10^3/uL Absolute Nucleated RBC (0.00-0.012) x10^3u/L Lymphocytes % (19.3-51.7) % Monocytes % (4.7-12.5) % Eosinophils % (0.7-5.8) % Basophils % (0.1-1.2) % Absolute Granulocytes (1.56-6.13) x10^3/uL Basophils # (0.01-0.08) x10^3/uL D-Dimer (0.0-0.50) mg/L Sodium (135-145) mmol/L Potassium (3.5-5.1) mmol/L Chloride (98-107) mmol/L Carbon Dioxide (22-30) mmol/L Anion Gap (5-15) MEQ/L BUN (7-17) mg/dL Creatinine (0.52-1.04) mg/dL Estimated GFR ML/MIN Glucose (74-106) mg/dL Calcium (8.4-10.2) mg/dL Magnesium (1.6-2.3) mg/dL Total Bilirubin (0.2-1.3) mg/dL AST (14-36) U/L ALT (0-35) U/L Alkaline Phosphatase (38-126) U/L Ammonia (9-30) umol/L Troponin I < 0.012 (0.000-0.033) ng/mL NT-Pro-B Natriuret Pep (<300) pg/mL Serum Total Protein (6.3-8.2) g/dL Albumin (3.5-5.0) g/dL Urine Color (Yellow) Urine Appearance (Clear) Urine pH (4.6-8.0) Ur Specific [place] (1.005-1.030) Urine Protein (Negative) Urine Glucose (UA) (Negative) mg/dL Urine Ketones (Negative) Urine Blood (Negative) Urine Nitrite (Negative) Urine Bilirubin (Negative) Urine Urobilinogen (0.2) mg/dL Ur Leukocyte Esterase (Negative) U Hyaline Cast (Auto) (0-2) /LPF Urine Microscopic RBC (0-5) /HPF Urine Microscopic WBC (0-5) /HPF Ur Epithelial Cells (None Seen) /HPF Urine Bacteria (None Seen) /HPF Urine Culture Reflexed (NO) Ethyl Alcohol (0-10) mg/dL Influenza Type A Ag (NEGATIVE) Influenza Type B Ag (NEGATIVE) RSV (PCR) (NEGATIVE) SARS-CoV-2 (PCR) (NEGATIVE) - Radiology Impressions Radiology Exams & Impressions: Radiology Procedures Category Date Time Status CHEST 1 VIEW (PORTABLE) Stat Exams 07/25/24 22:58 Taken CHEST WITH CONTRAST [CT] Stat Exams 07/26/24 00:09 Completed HEAD WITHOUT CONTRAST [CT] Stat Exams 07/25/24 19:[address] chest diffuse centrilobular emphysema in bilateral lungs, with focal fibrotic thickening in the posterior segment of the right upper lobe, with adjacent focal calcification. No PE. - Other Procedures and Tests Respiratory Therapy 07/26/24 01:37 Respiratory Therapy Assessment DAILY 07/26/24 03:50 Oxygen NASAL CANNULA 2 lpm Assessment/Plan (1) Hypoxia Current Visit: Yes Status: Acute Assessment & Plan: 73-year-old woman with a history of COPD and hypothyroidism, who presents with home initially with confusion which is now resolved, and now with hypoxia. ## Hypoxia not exactly clear what is the cause of patient's hypoxia. Her CT seems to be showing mainly chronic changes associated with COPD. Patient is currently moving air very well on exam with no wheezing, and has a high oxygen saturation on minimal oxygen support. At this point, not entirely clear that patient is even requiring her oxygen, although she might need more if she was exerting herself. Is also possible that her current clear lungs are due to prior treatments that she received in the ED. Continue PRN DuoNeb Holding off on steroids currently, but if patient shows signs of further COPD exacerbation, can give further dosing, but initial methylprednisolone in the ED should cover her for a while Try to wean off oxygen this morning If able to wean to room air, try to ambulate patient Patient does not know her home medications; nursing to try to call PCP in the morning for home medication list ## Asymptomatic bacteriuria patient has pyuria on exam but no dysuria, so there is no indication for treatment. Discontinue Rocephin ## Confusion reportedly patient was brought in from home because of confusion, but this appears to have resolved prior to arrival. Patient does not have any signs of current infection. Perhaps this was due to this intermittent hypoxia, but currently appears to be able to wean off of oxygen. Place in observation and observe overnight for recurrent symptoms ## Hypothyroidism, CAD per report. Patient is unaware of her medications; nursing to try to call PCP in the mo rning for home medication list ## Nicotine dependence patient has decreased her cigarette smoking, but still smokes 2 to 3 cigarettes/day. Encouraged further cessation Start nicotine patch 14 mg CODE STATUS: Full code Prophylaxis: Heparin BID Diet: Regular Dispo: Place in observation, expect discharge to home after about 24 hours if no further episodes of confusion and able to wean to room air Entirety of encounter took place via live audio/video telemedicine device, with remote physician and patient in hospital, with the assistance of bedside nurse. Code(s): R09.02 - HYPOXEMIA Telemedicine Encounter - Telemedicine Encounter Telemedicine Encounter: "The entirety of this encounter was performed via Telemedicine" This visit was performed using real-time audio and video connection between my location and thepatients locationwith the assistance of a surrogateat the patients location. Written or verbal consent was obtained from the patient/guardian to perform this visit [email or web address] technology. Any patient questions regarding the telemedicine interaction were answered.
--- NOTE | 2024-07-26 08:40 | XRAY ---
Indication: Short of breath. Comparison: None Portable chest demonstrates COPD and right apical calcified granuloma. No focal infiltrate, consolidation, or large effusion. Heart borderline enlarged with CABG. Bony thorax intact with osteopenia and mild degenerative changes. Impression: Nonacute chest with chronic features.
--- NOTE | 2024-07-26 08:40 | XRAY ---
Indication: Altered mental status. Multiple contiguous axial images obtained through the head without contrast. Comparison: None Age-appropriate global atrophy. No acute intracranial hemorrhage, abnormal extra-axial fluid collection, or mass effect. Fourth ventricle is midline without hydrocephalus. Carlson-white matter differentiation preserved. Bony calvarium intact. Visualized paranasal sinuses and mastoid air cells are clear. Impression: No acute intracranial abnormalities.
[2024-07-26] MEDS: HEPARIN 5000 UNITS/0.5 ML (HIGH RISK MED) SQ SCH (09:05)
[2024-07-26] MEDS ORDERED: MEDICATION INTERVENTION MC SCH (17:30)
[2024-07-26] MEDS: ECOTRIN 81 MG PO SCH (17:50)
[2024-07-26] MEDS: SYNTHROID 88 MCG PO SCH (17:50)
[2024-07-26] MEDS: Abilify 10 MG PO SCH (17:51)
[2024-07-26] MEDS: Lexapro PO SCH (17:51)
[2024-07-26] MEDS: ZOCOR 20MG PO SCH (17:51)
[2024-07-26] MEDS: PROVENTIL 2.5 MG/3 ML NEB IH SCH (18:50)
[2024-07-26] MEDS: DESYREL 50 MG PO SCH (22:14)
[2024-07-27] MEDS: DUONEB 0.5-3 MG/3 ml Neb IH PRN (01:46)
[2024-07-27 05:16] LABS: Absolute Neutrophil Ct (ANC) 6.57 x10^3/uL (1.56-6.13); BASOPHIL % 0.5 % (0.1-1.2); Basophil (Absolute #) 0.05 x10^3/uL (0.01-0.08); Eosinophil % 0.3 % (0.7-5.8); Eosinophil (Absolute #) 0.03 x10^3/uL (0.04-0.36); Hematocrit 31.7 % (34.1-44.9); Hemoglobin 10.2 g/dL (11.2-15.7); IMMATURE GRAN # 0.03 x10^3u/L (0.001-0.031); IMMATURE GRAN % 0.3 % (0.001-0.429); Lymphocytes % 25.7 % (19.3-51.7); Mean Cell Volume 97.8 fL (79.4-94.8); Mean Corpuscular Hemoglobin 31.5 pg (25.6-32.2); Mean Corpuscular Hgb Concent. 32.2 g/dL (32.2-35.5); Monocyte (Absolute #) 0.54 x10^3/uL (0.24-0.86); Monocytes % 5.6 % (4.7-12.5); Neutrophil % 67.6 % (34.0-71.1); Platelet Count 161 x10^3/uL (182-369); Red Blood Count 3.24 x10^6/uL (3.93-5.22); Red Cell Distribution Width 13.2 % (11.7-14.4); White Blood Count 9.7 x10^3/uL (3.98-10.04)
[2024-07-27 05:33] LABS: ALBUMIN 3.3 g/dL (3.5-5.0); ANION GAP 9.6 MEQ/L (5-15); BILIRUBIN,TOTAL 0.4 mg/dL (0.2-1.3); Calcium 8.2 mg/dL (8.4-10.2); Creatinine 1 0.6 mg/dL (0.52-1.04); EST GLOMERULAR FILTRATION RATE 94.7 ML/MIN; Potassium 3.4 mmol/L (3.5-5.1); Total Protein 6.1 g/dL (6.3-8.2)
[2024-07-27] MEDS: ROCEPHIN 1 GM / 100 ML NaCl 1 GM/100 ML IVPB IV ONE (07:27)
[2024-07-27] MEDS: Klor Con PO ONE (09:35)
[2024-07-27] MEDS: NICODERM CQ 14 MG TOP SCH (09:40)
[2024-07-27] MEDS: TYLENOL 325 MG PO PRN (09:40)
--- NOTE | 2024-07-27 10:03 | PCM.DS ---
Discharge Summary Date of Admission: 07/26/24 03:16 Date of Discharge: 07/27/24 Admitting Physician: RAYSHAWN BECERRA MD Primary Care Provider: NO FAMILY DOCTOR Allergies Allergies No Known Drug Allergies Allergy (Unverified 07/25/24 23:59) Hospital Summary - Hospital Course Hospital Course: The patient is a 73-year-old woman with a history of COPD and hypothyroidism, who presented to the emergency department with confusion. Upon arrival, the confusion had resolved, and she was at her baseline mentation. She had mild hypoxia with an SpO2 of 91% on room air but improved to 96% on 2 L of oxygen. She reported intermittent dyspnea but denied any cough, fever, or other respiratory symptoms. She also denied chest pain, abdominal pain, nausea, or dysuria but mentioned having intermittent diarrhea. In the ED, she was treated with broad-spectrum antibiotics (Rocephin and azithromycin), methylprednisolone, albuterol, and aspirin, as well as normal saline infusion. There was concern for a respiratory infection or exacerbation of COPD, though no clear signs of infection were present. The patients confusion was likely multifactorial, with potential contributors including mild hypoxia, dehydration, or electrolyte imbalances, given her history of diarrhea. Her condition stabilized with oxygen and supportive care, and she was observed without further significant changes. Pt to discharge today, she is stable, with no further confusion, and had an ox ygen saturation of 96% on 2 L oxygen. RT to eval for home O2 needs. She was advised to follow up with her primary care provider and order processing clerk for ongoing management of her COPD and hypothyroidism, and to monitor for any new or worsening symptoms. K+ 3.4 today and replaced, will OP F/U labs. Pt reports needing all home meds refilled. - Vitals & Intake/Output Vital Signs: Vital Signs Temperature 97.8 F 07/27/24 09:00 Pulse Rate 58 L 07/27/24 09:00 Respiratory Rate 18 07/27/24 09:00 Blood Pressure 91/51 07/27/24 09:00 O2 Sat by Pulse Oximetry 93 L 07/27/24 09:00 Intake & Output: Intake & Output 07/24/24 07/25/24 07/26/24 07/27/24 11:59 11:59 11:59 11:59 Intake Total 480 1040 Balance 480 1040 Weight 62.6 kg - Lab Result Diagrams: 07/27/24 05:08 07/27/24 05:08 Lab Results-Last 24 Hrs: Lab Results-Last 24 Hours 07/27/24 07/27/24 Range/Units 05:08 05:08 WBC 9.7 (3.98-10.04) x10^3/uL RBC 3.24 L (3.93-5.22) x10^6/uL Hgb 10.2 L (11.2-15.7) g/dL Hct 31.7 L (34.1-44.9) % MCV 97.8 H (79.4-94.8) fL MCH 31.5 (25.6-32.2) pg MCHC 32.2 (32.2-35.5) g/dL RDW 13.2 (11.7-14.4) % Plt Count 161 L (182-369) x10^3/uL MPV 12.0 (9.4-12.3) fL Gran % 67.6 (34.0-71.1) % Immature Gran % (Auto) 0.3 (0.001-0.429) % Nucleat RBC Rel Count 0.0 (0.00-0.2) % Eos # (Auto) 0.03 L (0.04-0.36) x10^3/uL Immature Gran # (Auto) 0.03 (0.001-0.031) x10^3u/L Absolute Lymphs (auto) 2.50 (1.18-3.74) x10^3/uL Absolute Monos (auto) 0.54 (0.24-0.86) x10^3/uL Absolute Nucleated RBC 0.00 (0.00-0.012) x10^3u/L Lymphocytes % 25.7 (19.3-51.7) % Monocytes % 5.6 (4.7-12.5) % Eosinophils % 0.3 L (0.7-5.8) % Basophils % 0.5 (0.1-1.2) % Absolute Granulocytes 6.57 H (1.56-6.13) x10^3/uL Basophils # 0.05 (0.01-0.08) x10^3/uL Sodium 142 (135-145) mmol/L Potassium 3.4 L (3.5-5.1) mmol/L Chloride 109 H (98-107) mmol/L Carbon Dioxide 26 (22-30) mmol/L Anion Gap 9.6 (5-15) MEQ/L BUN 10 (7-17) mg/dL Creatinine 0.60 (0.52-1.04) mg/dL Estimated GFR 94.7 ML/MIN Glucose 95 (74-106) mg/dL Calcium 8.2 L (8.4-10.2) mg/dL Total Bilirubin 0.40 (0.2-1.3) mg/dL AST 22 (14-36) U/L ALT 15 (0-35) U/L Alkaline Phosphatase 82 (38-126) U/L Serum Total Protein 6.1 L (6.3-8.2) g/dL Albumin 3.3 L (3.5-5.0) g/dL Micro Results-Entire Visit: Microbiology 07/25/24 00:47 Blood Culture - Preliminary Blood 07/26/24 00:15 Urine Culture - Final Urine, Void MIXED MATEO; 3 OR MORE TYPES. NO PREDOMINANT ORGANISM. NO FURTHER WORKUP. PLEASE RESUBMIT IF CLINICALLY INDICATED. - Radiology Exams Ordered Rad Exams-Entire Visit: Radiology Procedures Category Date Time Status CHEST 1 VIEW (PORTABLE) Stat Exams 07/25/24 22:58 Completed CHEST WITH CONTRAST [CT] Stat Exams 07/26/24 00:09 Completed HEAD WITHOUT CONTRAST [CT] Stat Exams 07/25/24 19:11 Completed - Procedures and Test Procedures and Tests throughout Hospitalization: Therapy Orders & Screens 07/26/24 01:37 Respiratory Therapy Assessment DAILY Comment: 07/26/24 03:50 Oxygen NASAL CANNULA 2 lpm Comment: Diagnosis: TIA, COPD exacerbation 07/26/24 04:10 Respiratory Therapy Consult ONCE Comment: Reason For Exam: Diagnosis: TIA, COPD exacerbation 07/27/24 07:21 RT Miscellaneous Order ROUTINE Comment: Physician Instructions: Reason For Exam: eval for home O2 need Diagnosis: confusion, hypoxia 07/27/24 07:22 Incentive Spirometry Q1H Comment: Diagnosis: confusion, hypoxia Discharge Exam General Appearance: no apparent distress, alert Neurologic Exam: alert, oriented x 3, cooperative, normal mood/affect, nml cerebellar function, sensation nml, No motor deficits Eye Exam: PERRL, EOMI, eyes nml inspection Ears, Nose, Throat Exam: normal ENT inspection, pharynx normal, moist mucous membranes Neck Exam: normal inspection, non-tender, supple, full range of motion Respiratory Exam: normal breath sounds, lungs clear, No respiratory distress Cardiovascular Exam: regular rate/rhythm, normal heart sounds Gastrointestinal/Abdomen Exam: soft, No tenderness, No mass Pelvic Exam: deferred Rectal Exam: deferred Back Exam: normal inspection, normal range of motion, No CVA tenderness, No vertebral tenderness Extremity Exam: normal inspection, normal range of motion Skin Exam: normal color, warm, dry Final Diagnosis/Problem List - Final Discharge Diagnosis/Problem (1) COPD exacerbation Current Visit: Yes Status: Acute Assessment & Plan: - RT eval for home O2 needs - on 2lNC 92% today - lungs clear - PRN DuoNeb - PULM and PCP appointments OP made. - CXR: Impression: Nonacute chest with chronic features - Chest CT: IMPRESSION: 1. Diffuse centrilobular emphysema is noted involving bilateral lungs.- possibility of COPD changes. 2. Focal fibrotic thickening are noted involving posterior segment of right upper lobe. 3. Focal calcification is noted adjacent to the course of segmental branches of right upper lobe. 4. No obvious evidence of pulmonary thromboembolism. Code(s): J44.1 - CHRONIC OBSTRUCTIVE PULMONARY DISEASE W (ACUTE) EXACERBATION (2) Hypoxia Current Visit: Yes Status: Acute Assessment & Plan: - see COPD above Code(s): R09.02 - HYPOXEMIA (3) Asymptomatic bacteriuria Current Visit: Yes Status: Resolved Assessment & Plan: patient has pyuria on exam but no dysuria, so there is no indication for treatment. Discontinue Rocephin - UC negative Code(s): R82.71 - BACTERIURIA (4) Nicotine dependence Current Visit: Yes Status: Chronic Assessment & Plan: - advised cessation - nicotine patch Code(s): F17.200 - NICOTINE DEPENDENCE, UNSPECIFIED, UNCOMPLICATED (5) Hypothyroidism Current Visit: Yes Status: Chronic Assessment & Plan: - Continue synthroid Code(s): E03.9 - HYPOTHYROIDISM, UNSPECIFIED (6) Confusion Current Visit: Yes Status: Resolved Assessment & Plan: - resolved Code(s): R41.0 - DISORIENTATION, UNSPECIFIED (7) Hypokalemia Current Visit: Yes Status: Acute Assessment & Plan: - K+ 3.4- replaced- f/u OP for labs Code(s): E87.6 - HYPOKALEMIA (8) Elevated d-dimer Current Visit: Yes Status: Acute Assessment & Plan: - CT negative for PE Code(s): R79.89 - OTHER SPECIFIED ABNORMAL FINDINGS OF BLOOD CHEMISTRY - Discharge Discharge Date: 07/27/24 Disposition: Home, Self-Care Condition: Stable Prescriptions: Continue Aripiprazole 10 mg [Abilify 10 MG] 10 mg PO DAILY 30 Days #30 tablet Umeclidinium Brm/Vilanterol Tr [Anoro Ellipta 62.5-25 Mcg INH] 1 puff IH DAILY 30 Days #1 blist Trazodone HCl 50 mg [Desyrel 50 mg] 100 mg PO HS 30 Days #30 tablet Aspirin EC 81 mg [Ecotrin 81 mg] 81 mg PO DAILY 30 Days #30 tablet Escitalopram Oxalate [Lexapro] 10 mg PO DAILY 30 Days #30 tablet Naproxen 500 mg [Naprosyn 500 MG] 500 mg PO BID 30 Days #60 tablet Levothyroxine Sodium 88 Mcg [Synthroid 88 Mcg] 88 mcg PO DAILY 30 Days #30 tablet Changed Atorvastatin Calcium [Lipitor] 80 mg PO HS 30 Days #30 tablet Discontinued Albuterol 2.5 mg/0.5 ml [PROVENTIL Solution 2.5 MG/0.5 ML] 3 ml IH QID Follow up with: MARIPOSA DICKENS MD [ACTIVE STAFF] - 08/08/24
[2024-07-27 12:50] VITALS: BP 108/57; PULSE 54; RESP 16; TEMP 97.3; O2SAT 90
== END 2024-07-27 15:18 | disposition home or self-care (01) ==
LOC: ED 19:08 → MED SURG 07-26 03:16
PROVIDERS: ADMIT Internal Medicine; ATTEND Internal Medicine
DX: J44.1 Chronic obstructive pulmonary disease with (acute) exacerbation (principal); R09.02 Hypoxemia; R82.71 Bacteriuria; F17.200 Nicotine dependence, unspecified, uncomplicated; E03.9 Hypothyroidism, unspecified; R41.0 Disorientation, unspecified; E87.6 Hypokalemia; R79.89 Other specified abnormal findings of blood chemistry; Z79.899 Other long term (current) drug therapy; I25.10 Atherosclerotic heart disease of native coronary artery without angina pectoris; Z95.0 Presence of cardiac pacemaker
CPT/HCPCS: 0241U; 36415; 70450; 71045; 71260; 80048; 80053; 81001; 82077; 82140; 83735; 83880; 84484; 85025; 85027; 85379; 87040; 87086; 93005; 93041; 94640; 94760; 96366; 96374; 96375; 99285; G0378; Q3014; J0456; J0696; J1644; J2919; J7609; A9270-GY

== ENCOUNTER 2024-10-01 14:34 | Emergency (ER) | payer MEDICARE ==
[2024-10-01] MEDS ORDERED: XYLOCAINE 1% HCL 20 ML MDV IJ ONE (14:35)
[2024-10-01 14:53] VITALS: TEMP 97; O2SAT 97
[2024-10-01 15:31] LABS: Absolute Neutrophil Ct (ANC) 3.47 x10^3/uL (1.56-6.13); Basophil (Absolute #) 0.06 x10^3/uL (0.01-0.08); Eosinophil % 3.1 % (0.7-5.8); Eosinophil (Absolute #) 0.18 x10^3/uL (0.04-0.36); Hematocrit 38.8 % (34.1-44.9); Hemoglobin 12.7 g/dL (11.2-15.7); IMMATURE GRAN # 0.01 x10^3u/L (0.001-0.031); IMMATURE GRAN % 0.2 % (0.001-0.429); Lymphocyte (Absolute #) 1.76 x10^3/uL (1.18-3.74); Lymphocytes % 29.9 % (19.3-51.7); Mean Corpuscular Hemoglobin 31.4 pg (25.6-32.2); Mean Corpuscular Hgb Concent. 32.7 g/dL (32.2-35.5); Mean Platelet Volume 11.7 fL (9.4-12.3); Monocytes % 6.8 % (4.7-12.5); Platelet Count 153 x10^3/uL (182-369); Red Blood Count 4.04 x10^6/uL (3.93-5.22); Red Cell Distribution Width 12.7 % (11.7-14.4); White Blood Count 5.9 x10^3/uL (3.98-10.04)
--- NOTE | 2024-10-01 15:32 | ERPHSYRPT ---
- History of Present Illness Time Seen by Provider: 10/01/24 15:30 Source: patient, family Exam Limitations: no limitations Patient Subjective Stated Complaint: pt here for buring with urination for about a week now, and some abd cramping, no fever Triage Nursing Assessment: pt alert, walked in, unable to urinate, resp easy, skin w/d/p. abs soft, no edema noted Physician History: pt here for burning with urination for about a week now, and some abdominal cramping cramping, for 1 week, no fever Timing/Duration: week(s) (One week) Quality: cramping Onset Location: abdominal pain Pain Radiation: suprapubic Severity of Pain-Max: mild Severity of Pain-Current: mild Prior abdominal problems: none Sexual intercourse history: not active Modifying Factors: Improves With: nothing Associated Symptoms: dysuria Allergies/Adverse Reactions: Iodinated Contrast Media Allergy (Verified 10/01/24 14:46) Hx Tetanus, Diphtheria Vaccination/Date Given: No Hx Influenza Vaccination/Date Given: No Hx Pneumococcal Vaccination/Date Given: No Travel Risk - International Travel Have you traveled outside of the country in past 3 weeks: No - Emerging Infectious Disease Are you exhibiting symptoms associated with any current EIDs: No - Review of Systems Constitutional: No Fever, No Chills Eyes: No Symptoms Ears, Nose, & Throat: No Symptoms Respiratory: No Cough, No Dyspnea Cardiac: No Chest Pain, No Edema, No Syncope Abdominal/Gastrointestinal: No Abdominal Pain, No Nausea, No Vomiting, No Diarrhea Genitourinary Symptoms: Dysuria, Frequency, Hesitancy Musculoskeletal: No Back Pain, No Neck Pain Skin: No Rash Neurological: No Dizziness, No Focal Weakness, No Sensory Changes Psychological: No Symptoms Endocrine: No Symptoms All Other Systems: Reviewed and Negative - Past Medical History Pertinent Past Medical History: Yes Neurological History: No Pertinent History ENT History: No Pertinent History Cardiac History: Coronary Artery Disease Respiratory History: No Pertinent History Endocrine Medical History: Hypothyroidism Musculoskeletal History: No Pertinent History GI Medical History: No Pertinent History History: No Pertinent History Psycho-Social History: No Pertinent History Female Reproductive Disorders: No Pertinent History - Past Surgical History Past Surgical History: Yes Neuro Surgical History: No Pertinent History Cardiac: CABG Respiratory: No Pertinent History Gastrointestinal: No Pertinent History Genitourinary: No Pertinent History Musculoskeletal: No Pertinent History Female Surgical History: No Pertinent History Other Surgical History: thyroid removed in the 's, does not remember exact year Significant Family History: no pertinent family hx, other (both parents with cancer; son with epilepsy) - Social History Smoking Status: Current every day smoker How long have you smoked: 47 years Exposure to second hand smoke: Yes Drug Use: none - Social Determinants of Health Will the patient participate in the screening: Declined to provide - Nursing Vital Signs Nursing Vital Signs: Initial Vital Signs Temperature 97.0 F 10/01/24 14:52 Pulse Rate 50 L 10/01/24 14:52 Respiratory Rate 18 10/01/24 14:52 Blood Pressure 151/50 10/01/24 14:52 O2 Sat by Pulse Oximetry 97 10/01/24 14:52 Pain Scale Pain Intensity 3 - Physical Exam General Appearance: no apparent distress, alert Eye Exam: PERRL/EOMI, eyes nml inspection Ears, Nose, Throat Exam: normal ENT inspection, TMs normal, pharynx normal, moist mucous membranes Neck Exam: normal inspection, non-tender, supple, full range of motion Respiratory Exam: normal breath sounds, lungs clear, No respiratory distress Cardiovascular Exam: regular rate/rhythm, normal heart sounds, normal peripheral pulses Gastrointestinal/Abdomen Exam: soft, No tenderness, No mass Back Exam: normal inspection, normal range of motion, No CVA tenderness, No vertebral tenderness Extremity Exam: normal inspection, normal range of motion, pelvis stable Neurologic Exam: alert, oriented x 3, cooperative, 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 tested, normal mood/affect, sensation nml, No motor deficits Skin Exam: normal color, warm, dry Lymphatic Exam: No adenopathy SpO2: 97 - Course Nursing assessment & vital signs reviewed: Yes Ordered Tests: Active Orders 24 hr Category Date Time Status CBC W DIFF Stat Lab 10/01/24 15:31 Completed CMP Stat Lab 10/01/24 15:31 Completed CULTURE,URINE Stat Lab 10/01/24 15:50 Received UA W/RFX UR CULTURE Stat Lab 10/01/24 15:50 Completed Lab/Rad Data: Laboratory Result Diagrams 10/01/24 15:31 10/01/24 15:31 Laboratory Results 10/01/24 10/01/24 10/01/24 Range/Units 15:50 15:31 15:31 WBC 5.9 (3.98-10.04) x10^3/uL RBC 4.04 (3.93-5.22) x10^6/uL Hgb 12.7 (11.2-15.7) g/dL Hct 38.8 (34.1-44.9) % MCV 96.0 H (79.4-94.8) fL MCH 31.4 (25.6-32.2) pg MCHC 32.7 (32.2-35.5) g/dL RDW 12.7 (11.7-14.4) % Plt Count 153 L (182-369) x10^3/uL MPV 11.7 (9.4-12.3) fL Gran % 59.0 (34.0-71.1) % Immature Gran % (Auto) 0.2 (0.001-0.429) % Nucleat RBC Rel Count 0.0 (0.00-0.2) % Eos # (Auto) 0.18 (0.04-0.36) x10^3/uL Immature Gran # (Auto) 0.01 (0.001-0.031) x10^3u/L Absolute Lymphs (auto) 1.76 (1.18-3.74) x10^3/uL Absolute Monos (auto) 0.40 (0.24-0.86) x10^3/uL Absolute Nucleated RBC 0.00 (0.00-0.012) x10^3u/L Lymphocytes % 29.9 (19.3-51.7) % Monocytes % 6.8 (4.7-12.5) % Eosinophils % 3.1 (0.7-5.8) % Basophils % 1.0 (0.1-1.2) % Absolute Granulocytes 3.47 (1.56-6.13) x10^3/uL Basophils # 0.06 (0.01-0.08) x10^3/uL Sodium 142 (135-145) mmol/L Potassium 4.1 (3.5-5.1) mmol/L Chloride 105 (98-107) mmol/L Carbon Dioxide 29 (22-30) mmol/L Anion Gap 11.7 (5-15) MEQ/L BUN 11 (7-17) mg/dL Creatinine 0.71 (0.52-1.04) mg/dL Estimated GFR 89.7 ML/MIN Glucose 83 (74-106) mg/dL Calcium 9.3 (8.4-10.2) mg/dL Total Bilirubin 0.70 (0.2-1.3) mg/dL AST 26 (14-36) U/L ALT 17 (0-35) U/L Alkaline Phosphatase 78 (38-126) U/L Serum Total Protein 7.2 (6.3-8.2) g/dL Albumin 4.1 (3.5-5.0) g/dL Urine Color Dark Yellow A (Yellow) Urine Appearance Clear (Clear) Urine pH 6.5 (4.6-8.0) Ur Specific [place] 1.020 (1.005-1.030) Urine Protein 30 (Negative) Urine Glucose (UA) Negative (Negative) mg/dL Urine Ketones Trace A (Negative) Urine Blood Negative (Negative) Urine Nitrite Negative (Negative) Urine Bilirubin Negative (Negative) Urine Urobilinogen 1.0 A (0.2) mg/dL Ur Leukocyte Esterase Large A (Negative) U Hyaline Cast (Auto) NONE SEEN (0-2) /LPF Urine Microscopic RBC 0-2 (0-5) /HPF Urine Microscopic WBC >100 A (0-5) /HPF Ur Epithelial Cells Rare (None Seen) /HPF Urine Bacteria None Seen (None Seen) /HPF Urine Culture Reflexed YES (NO) - Progress Progress: unchanged Air Movement: good Blood Culture(s) Obtained: No Antibiotics given: Yes Counseled pt/family regarding: lab results, diagnosis, need for follow-up Medical Desision Making - Independent Historian Additional History obtained from: Family - Diagnostic Testing Diagnostic test were ordered, analyzed, and reviewed by me: Yes - Risk of complications Low Risk: Low risk of morbidity from additional dx testing or treatment - Departure Departure Disposition: Home Clinical Impression: UTI (urinary tract infection) Qualifiers: Urinary tract infection type: acute pyelonephritis Qualified Code(s): N10 - Acute pyelonephritis Condition: Stable Critical Care Time: No Referrals: MARIPOSA DICKENS MD [Primary Care Provider, FAMILY PRACTICE] - Follow up/PCP as directed Instructions: Urinary Tract Infection, Adult (DC) Additional Instructions: Discharge/Care Plan JOHANNA KIRK was seen on 10/01/24 in the Emergency Room. The patient was counseled regarding Diagnosis,Lab results, Imaging studies, need for follow up and when to return to the Emergency Room. Prescriptions given: Discharge Note I have spoken with the patient and/or caregivers. I have explained the patient's condition, diagnosis and treatment plan based on the information available to me at this time. I have answered the patient's and/or caregiver's questions and addressed any concerns. The patient and/or caregivers have as good understanding of the patient's diagnosis, condition and treatment plan as can be expected at this point. The vital signs have been stable. The patient's condition is stable and appropriate for discharge from the emergency department. The patient will pursue further outpatient evaluation with the primary care physician or other designated or consulting physician as outlined in the discharge instructions. The patient and/or caregivers are agreeable to this plan of care and follow-up instructions have been explained in detail. The patient and/or caregivers have received these instruction. The patient/and or caregivers are aware that any significant change in condition or worsening of symptoms should prompt an immediate return to this or the closest emergency department or call 911. URINARY TRACT INFECTION 1. You will need to drink plenty of fluids in order to keep your urinary system flushed. These fluids should mainly consist of water and juices. 2. Take medications as directed. You need to completely finish any antiobiotic prescription given. 3. Try to avoid coffee, tea, alcohol, and seasoned foods as they may cause bladder irritation. 4. If signs and symptoms persist after 3-4 days, you will need to follow up with your family physician. 5. Female Patients: A. Avoid intercourse for 3-4 days. B. Empty bladder before and after intercourse to reduce risk of re- infection. C. After emptying bladder, wipe from front to back to reduce the risk of re- infection.JOHANNA KIRK was seen on 10/01/24 n the Emergency Room. At that time you were treated for an emergent condition, during your visit Laboratory, Radiology and/or other procedures may have been ordered. It is very important that you follow-up with your Primary Care Physician MARIPOSA DICKENS MD within the next 24-48 hours to review your Emergency Room visit and the final results of testing that was ordered. Some test results such as Urine Cultures, Blood Cultures, and other cultures if ordered will not be finalized for 24-48 hours. If you do not have a Primary Care Provider please call the medical records department at [phone] ext [phone] to obtain a copy of your results or you may sign into our patient portal to obtain these results by visiting us @ [email or web address] and completing the following steps: 1. Click on the Patient Portal link 2. Click the Patient Self Enrollment Link to complete the enrollment form and entering your 3. Once the enrollment form is completed you will receive an email with a temporary ID and password at the email address you provided. 4. Next choose a user name and password. Your user name must be at least 4 characters long and your password must be at least 4 characters long. 5. Choose a security question from the list and provide your answer to the question. If you already have signed into the Health Portal you may access your Health Care Information 28/12 by the following steps: 1. Login to our website @ [email or web address] 2. Enter your original user name and password. FAQS The [facility] Portal is an online tool that contains your Lab Results, Radiology Reports, Visit History, Discharge Instructions and Health Summary Lab and Radiology Results will not be available for 72 hours on the portal. The Portal is a secure site, passwords are encryted and URLs are re-written so they cannot be copied and pasted. You and authorized family members are the only ones who can access your Portal. Also there is a timeout feature that protects your information if you leave the Portal page open. If you have technical difficulty please use the Contact Us link on the page this will allow you to submit any questions you have regarding the Portal or you may contact the Medical Record Department at [phone]. Prescriptions: Ciprofloxacin [Cipro 500 MG] 500 mg PO BIDAC #14 tablet
[2024-10-01 15:46] LABS: ALBUMIN 4.1 g/dL (3.5-5.0); ANION GAP 11.7 MEQ/L (5-15); BILIRUBIN,TOTAL 0.7 mg/dL (0.2-1.3); Calcium 9.3 mg/dL (8.4-10.2); Creatinine 1 0.71 mg/dL (0.52-1.04); EST GLOMERULAR FILTRATION RATE 89.7 ML/MIN; Potassium 4.1 mmol/L (3.5-5.1); Total Protein 7.2 g/dL (6.3-8.2)
[2024-10-01 16:00] LABS: Appearance Clear (Clear); Bacteria None Seen /HPF (None Seen); Bilirubin Negative (Negative); Blood Negative (Negative); Epithelial Cells Rare /HPF (None Seen); Glucose, Urine Negative (Negative); Hyaline Casts NONE SEEN /LPF (0-2); Ketones Trace (Negative); Leukocyte Esterase Large (Negative); Nitrite Negative (Negative); Ph 6.5 (4.6-8.0); Protein,Urine Dip 30 (Negative); RBC 0-2 /HPF (0-5); WBC >100 /HPF (0-5)
[2024-10-01] MEDS ORDERED: Rocephin 1000 MG INJ ONE (16:45)
[2024-10-01] MEDS: Rocephin 1000 MG INJ IM ONE (16:49)
[2024-10-01 17:09] VITALS: BP 172/74; PULSE 50; RESP 18
== END 2024-10-01 17:10 | disposition home or self-care (01) ==
LOC: ED 14:34
DX: N10 Acute pyelonephritis (principal); R30.0 Dysuria; R10.9 Unspecified abdominal pain; Z79.899 Other long term (current) drug therapy; Z72.0 Tobacco use
CPT/HCPCS: 36415; 80053; 81001; 85025; 87086; 96372; 99283; J0696